=== PATIENT | male | born 1990 | race African-American/Black ===

== ENCOUNTER 2016-10-03 14:35 | Emergency (ER) | payer OTHER ==
[~2016-10-03] VITALS: Ht 167.6 cm; Wt 92.1 kg
[~2016-10-03 14:35] MED LIST: AZITHROMYCIN 2250 MG PO; BACTRIM DS TAB1 EACH PO; DOXYCYCLINE 10100 MG PO; IBUPROFEN 800800 M1 PO; INDOMETHACIN 2525 MG PO; NORCO 5-325 TA1 EACH PO; PERCOCET 7.5-31 EACH PO; PREDNISONE 20 M20 M1 PO; PROMETHAZINE-D120 ML PO; PROZAC20 MG PO; VENTOLIN HFA INH8 GM IH
[2016-10-03 14:38] VITALS: BP 132/57
[2016-10-03] MEDS ORDERED: IBUPROFEN 600600 M1 PO (16:08)
== END 2016-10-03 16:22 | disposition home or self-care (01) ==
LOC: ER 14:35
DX: S93.401A Sprain of unspecified ligament of right ankle, initial encounter (principal); S90.31XA Contusion of right foot, initial encounter; M10.9 Gout, unspecified; F10.99 Alcohol use, unspecified with unspecified alcohol-induced disorder; Z90.89 Acquired absence of other organs; Z98.890 Other specified postprocedural states; Z88.0 Allergy status to penicillin; W01.0XXA Fall on same level from slipping, tripping and stumbling without subsequent striking against object, initial encounter; Y93.89 Activity, other specified; Y92.89 Other specified places as the place of occurrence of the external cause; Y99.0 Civilian activity done for income or pay